=== PATIENT | female | born 1965 | race Caucasian/White ===

== ENCOUNTER 2017-01-24 14:42 | Emergency (ER) | payer OTHER ==
[~2017-01-24] VITALS: Ht 175.3 cm; Wt 120.0 kg
[~2017-01-24 14:42] MED LIST: LEVEMIR1000 UNITS SC; LORTAB 5/3255 MG PO; LOSARTAN POT25 MG PO; METFORMIN500 M1 PO; PRILOSEC40 MG PO; SERTRALINE50 MG PO; SINGULAIR10 MG PO; ULTRAM50 M1 PO; ZPAK PO
[2017-01-24] MEDS ORDERED: TRESIBA FL100 UNIT/M IJ (15:06)
[2017-01-24] MEDS ORDERED: METFORMIN500 MG PO (15:06)
[2017-01-24] MEDS ORDERED: SERTRALINE100 MG PO (15:07)
[2017-01-24] MEDS ORDERED: LOSARTAN POT25 MG PO (15:08)
[2017-01-24] MEDS ORDERED: CVS OMEPRAZOLE20 MG PO (15:09)
[2017-01-24 15:45] LABS: INFLUENZA A NONE DETECTED (NONE DETECT); INFLUENZA B NONE DETECTED (NONE DETECT)
[2017-01-24] MEDS ORDERED: ZPAK PO (15:48)
[2017-01-24 15:55] VITALS: BP 135/77
== END 2017-01-24 15:59 | disposition home or self-care (01) | DRG 203 ==
LOC: ED 14:42
PROVIDERS: Family Medicine
DX: J40 Bronchitis, not specified as acute or chronic (principal); J02.9 Acute pharyngitis, unspecified; R05 Cough; J34.89 Other specified disorders of nose and nasal sinuses

== ENCOUNTER 2018-06-23 11:57 | Emergency (ER) | payer BC, OTHER ==
[~2018-06-23] VITALS: Ht 175.3 cm; Wt 100.0 kg
[~2018-06-23 11:57] MED LIST changes: +CVS OMEPRAZOLE20 MG PO; +METFORMIN500 MG PO; +SERTRALINE100 MG PO; +TRESIBA FL100 UNIT/M IJ
[2018-06-23] MEDS ORDERED: OZEMPIC2 MG/1.5 M SC (12:36)
[2018-06-23] MEDS ORDERED: TORADOL PO (13:36)
[2018-06-23] MEDS ORDERED: TYLENOL # 31 TA1 PO (13:36)
[2018-06-23 13:54] VITALS: BP 131/53
== END 2018-06-23 13:54 | disposition home or self-care (01) | DRG 563 ==
LOC: ED 11:57
DX: S46.912A Strain of unspecified muscle, fascia and tendon at shoulder and upper arm level, left arm, initial encounter (principal); E11.9 Type 2 diabetes mellitus without complications; W19.XXXA Unspecified fall, initial encounter